=== PATIENT | female | born 1975 ===

== ENCOUNTER 2018-05-25 09:12 | Outpatient (CLI) | payer OTHER | END 2018-05-25 09:29 | disposition home or self-care (01) | LOC: RX STUDY 09:12 | DX: R13.19 Other dysphagia (principal) ==

== ENCOUNTER 2024-06-05 06:12 | Day surgery (SDC) | payer OTHER ==
[2024-06-05] MEDS ORDERED: MIDAZOLAM HCL 2 MG/2 ML VIAL IV ONE (09:30)
[2024-06-05] MEDS ORDERED: fentaNYL CITRATE 50 MCG/ML AMPUL IV PUSH ONE (09:30)
[2024-06-05] MEDS ORDERED: DIPHENHYDRAMINE HCL 50 MG/ML VIAL 1ML IV ONE (09:30)
[2024-06-05] MEDS ORDERED: METOPROLOL TARTRATE 5MG/5ML AMPUL IV STA (09:40)
[2024-06-05 11:46] LABS: HEMATOCRIT 37.1 % (36.0-45.00); HEMOGLOBIN 12.8 g/dL (12.0-15.00); MEAN CELL VOLUME 88.6 fL (80.00-100.00); MEAN CORPUSCULAR HEMOGLOBIN 30.7 pg (27.00-32.0); MEAN CORPUSCULAR HGB CONC 34.6 g/dl (32.0-36.0); PLATELET COUNT 288 K/uL (150-450); RED BLOOD COUNT 4.19 M/uL (4.00-6.00); RED CELL DISTRIBUTION WIDTH 12.6 % (11.5-14.5)
[2024-06-05 12:22] LABS: ABG PH 7.497 (7.35-7.45); ABG PO2 108.2 mmHg (80-100); BASE EXCESS -0.6 mmol/l; BICARBONATE 21.2 mmol/l (23-25); SaO2 98.6 %
[2024-06-05 13:01] LABS: CALCIUM 9.4 mg/dL (8.5-10.1); CREATININE SERUM 0.63 mg/dL (0.55-1.02); GFR 101.29; MAGNESIUM 2.2 mg/dL (1.8-2.4); PHOSPHOROUS 3.9 mg/dL (2.5-4.9); POTASSIUM 3.25 mEq/L (3.5-5.1); TSH 2.75 uIU/mL (0.358-3.74)
[2024-06-05] MEDS ORDERED: POTASSIUM CHLORIDE 8 MEQ TABLET PO STA (13:35)
[2024-06-05 15:01] LABS: o2 21 %; puncture site RADIAL LEFT
== END 2024-06-05 16:30 | disposition home or self-care (01) ==
LOC: AMB-ENDOS 06:12
PROVIDERS: Internal Medicine Geriatric Medicine; ATTEND Colon & Rectal Surgery
DX: Z12.11 Encounter for screening for malignant neoplasm of colon (principal); R00.0 Tachycardia, unspecified; Z53.09 Procedure and treatment not carried out because of other contraindication

== ENCOUNTER 2024-08-28 06:25 | Day surgery (SDC) | payer OTHER ==
[2024-08-28] MEDS ORDERED: fentaNYL CITRATE 50 MCG/ML AMPUL IV PUSH ONE (10:45)
[2024-08-28] MEDS ORDERED: DIPHENHYDRAMINE HCL 50 MG/ML VIAL 1ML IV ONE (10:45)
[2024-08-28] MEDS ORDERED: MIDAZOLAM HCL 2 MG/2 ML VIAL IV ONE (10:45)
== END 2024-08-28 12:10 | disposition home or self-care (01) ==
LOC: AMB-ENDOS 06:25
PROVIDERS: ATTEND Colon & Rectal Surgery
DX: K63.5 Polyp of colon (principal); Z12.11 Encounter for screening for malignant neoplasm of colon